=== PATIENT | female | born 1935 | race Asian ===

== ENCOUNTER → 2016-06-18 | Outpatient (CLI) | payer MEDICARE, OTHER ==
[~2016-06-18] MED LIST: AMLO-511 PO; ASPI-825 PO; ATOR20TA86 PO; CARV6 PO; TELM40 PO
== END | disposition home or self-care (01) ==
LOC: LABPV 10:32
PROVIDERS: ATTEND Internal Medicine
DX: J98.4 Other disorders of lung (principal); I70.0 Atherosclerosis of aorta; J98.11 Atelectasis
CPT/HCPCS: 71020

== ENCOUNTER 2016-09-22 11:07 | Emergency (ER) | payer MEDICARE, OTHER ==
[~2016-09-22] VITALS: Ht 152.4 cm; Wt 4.0 kg
[2016-09-22 14:25] VITALS: BP 141/85
== END 2016-09-22 15:26 | disposition home or self-care (01) ==
LOC: EMS 11:09
DX: M25.561 Pain in right knee (principal); I10 Essential (primary) hypertension; E78.00 Pure hypercholesterolemia, unspecified; I25.10 Atherosclerotic heart disease of native coronary artery without angina pectoris; Z91.041 Radiographic dye allergy status
CPT/HCPCS: 29505; 99284

== ENCOUNTER → 2016-10-13 | Outpatient (CLI) | payer MEDICARE, OTHER ==
[~2016-10-13] MED LIST changes: +SIMV-261 PO
[2016-10-13 12:39] LABS: ALBUMIN 3.4 g/dL (3.4-5.0); BILIRUBIN,TOTAL 0.5 mg/dL (0.1-1.0); CALCIUM, TOTAL 9.1 mg/dL (8.8-10.5); CREATININE 1.14 mg/dL (0.60-1.30); POTASSIUM 4.3 mmol/L (3.5-5.1); TOTAL PROTEIN, SERUM 7.6 g/dL (6.4-8.2)
== END | disposition home or self-care (01) ==
LOC: LABPV 09:53
PROVIDERS: ATTEND Internal Medicine
DX: R05 Cough (principal)

== ENCOUNTER → 2016-10-15 | Outpatient (CLI) | payer MEDICARE, OTHER ==
[~2016-10-15] MED LIST changes: +IOVERSOL 350 MG/ML 50 ML VIAL ONE; -SIMV-261 PO; +SODIUM CHLORIDE 0.9% 100 ML ONE
== END | disposition home or self-care (01) ==
LOC: RADMN 08:11
PROVIDERS: ATTEND Internal Medicine
DX: C50.919 Malignant neoplasm of unspecified site of unspecified female breast (principal); R05 Cough
CPT/HCPCS: 71260; J7050; Q9967

== ENCOUNTER 2016-11-04 12:03 | Emergency (ER) | payer MEDICARE, OTHER ==
[~2016-11-04] VITALS: Ht 152.4 cm; Wt 45.8 kg
[~2016-11-04 12:03] MED LIST changes: -IOVERSOL 350 MG/ML 50 ML VIAL ONE; -SODIUM CHLORIDE 0.9% 100 ML ONE
[2016-11-04] MEDS ORDERED: DONNATAL/LIDOCAINE/MAALOX 55 ML BOTTLE PO ONE (15:45)
[2016-11-04 16:02] LABS: BASOPHILS % (AUTO) 0.7 % (0.0-2.0); EOSINOPHILS % (AUTO) 3.1 % (1.0-6.0); HEMATOCRIT 39.8 % (36-46); HEMOGLOBIN 13.5 g/dL (12.0-16.0); LYMPHOCYTES # (AUTO) 2.3 K/uL (1.0-4.8); LYMPHOCYTES % (AUTO) 26.5 % (22.0-44.0); MEAN CORPUSCULAR HEMOGLOBIN 30.9 pg (26.0-34.0); MEAN CORPUSCULAR VOLUME 91 fL (80-100); MONOCYTES # (AUTO) 0.6 K/uL (0.1-1.0); MONOCYTES % (AUTO) 7.1 % (2.0-9.0); NEUTROPHILS # (AUTO) 5.4 K/uL (1.8-7.7); NEUTROPHILS % (AUTO) 62.6 % (40.0-70.0); PLATELET COUNT (AUTO) 295 K/uL (150-450); RED BLOOD CELL COUNT(AUTO) 4.38 MIL/uL (4.00-5.20); RED CELL DISTRIBUTION WIDTH 12.2 % (11.5-14.5); WHITE BLOOD COUNT (AUTO) 8.7 K/uL (4.5-11.0)
[2016-11-04 16:05] LABS: CALCIUM, TOTAL 9.9 mg/dL (8.8-10.5); CREATININE 1.03 mg/dL (0.60-1.30)
[2016-11-04 16:07] LABS: PROTHROMBIN TIME 10.4 SEC (9.4-11.6)
[2016-11-04 16:11] LABS: BILIRUBIN,TOTAL 0.8 mg/dL (0.1-1.0); TOTAL PROTEIN, SERUM 8.5 g/dL (6.4-8.2)
[2016-11-04 16:12] LABS: GLUCOSE,POINT OF CARE 97 MG/DL (70-110)
[2016-11-04 17:11] LABS: APPEARANCE,URINE CLEAR (CLEAR); GLUCOSE, URINE (UA) NEGATIVE (NEGATIVE); KETONES,URINE NEGATIVE (NEGATIVE); LEUKOCYTE ESTERASE ,URINE NEGATIVE (NEGATIVE); OCCULT BLOOD,URINE NEGATIVE (NEGATIVE); PROTEIN,URINE NEGATIVE (NEGATIVE)
[2016-11-04 17:15] LABS: SQUAMOUS EPITHELIAL CELL,UR Few /LPF (None Seen)
[2016-11-04 17:18] LABS: RBC,URINE 0-2 /HPF (0-2); WBC,URINE 0-2 /HPF (0-5)
[2016-11-04 18:38] VITALS: BP 129/69
== END 2016-11-04 18:43 | disposition home or self-care (01) ==
LOC: EMS 12:05
DX: R10.13 Epigastric pain (principal); E78.00 Pure hypercholesterolemia, unspecified; I25.10 Atherosclerotic heart disease of native coronary artery without angina pectoris; I10 Essential (primary) hypertension; Z79.82 Long term (current) use of aspirin; Z88.8 Allergy status to other drugs, medicaments and biological substances
CPT/HCPCS: 74022; 82948; 82962; 93005; 99285

== ENCOUNTER → 2019-05-11 | Outpatient (CLI) | payer MEDICARE, OTHER ==
[~2019-05-11] MED LIST changes: -AMLO-511 PO; +AMLO5TAB9 PO
== END | disposition home or self-care (01) ==
LOC: RADPV 14:44
PROVIDERS: ATTEND Internal Medicine
DX: I70.0 Atherosclerosis of aorta (principal); I51.7 Cardiomegaly; M85.80 Other specified disorders of bone density and structure, unspecified site; M47.819 Spondylosis without myelopathy or radiculopathy, site unspecified; M19.012 Primary osteoarthritis, left shoulder; J84.9 Interstitial pulmonary disease, unspecified; J98.11 Atelectasis

== ENCOUNTER → 2019-06-14 | Outpatient (CLI) | payer MEDICARE, OTHER | END | disposition home or self-care (01) | LOC: RADMN 10:22 | PROVIDERS: ATTEND Internal Medicine Pulmonary Disease | DX: J43.2 Centrilobular emphysema (principal); J98.19 Other pulmonary collapse; J84.10 Pulmonary fibrosis, unspecified; B44.81 Allergic bronchopulmonary aspergillosis; J47.9 Bronchiectasis, uncomplicated; I51.7 Cardiomegaly; I25.10 Atherosclerotic heart disease of native coronary artery without angina pectoris; I70.0 Atherosclerosis of aorta; Z90.11 Acquired absence of right breast and nipple; R91.8 Other nonspecific abnormal finding of lung field; K76.9 Liver disease, unspecified; M47.814 Spondylosis without myelopathy or radiculopathy, thoracic region | CPT/HCPCS: 71250 ==

== ENCOUNTER 2021-10-20 11:08 | Emergency (ER) | payer MEDICARE, OTHER ==
[~2021-10-20] VITALS: Ht 152.4 cm; Wt 45.5 kg
[~2021-10-20 11:08] MED LIST changes: +AMLO-257 PO; -AMLO5TAB9 PO
[2021-10-20] MEDS ORDERED: ASPI-1444 PO (11:59)
[2021-10-20] MEDS ORDERED: ACETAMINOPHEN 325 MG TABLET PO ONE (12:00)
[2021-10-20 12:01] LABS: COVID AG,FIA SOURCE NASAL SWAB
[2021-10-20 12:52] VITALS: BP 147/75
[2021-10-20] MEDS ORDERED: BENZ-70 PO (13:32)
== END 2021-10-20 13:48 | disposition home or self-care (01) ==
LOC: EMS 11:12
DX: U07.1 COVID-19 (principal); E78.00 Pure hypercholesterolemia, unspecified; I10 Essential (primary) hypertension
CPT/HCPCS: 71045; 99284